=== PATIENT | male | born 1960 | race Caucasian/White ===

== ENCOUNTER 2022-05-26 07:12 | Outpatient (CLI) | payer OTHER | END 2022-05-26 10:20 | disposition home or self-care (01) | LOC: SONOGRAMA 07:12 | PROVIDERS: ATTEND Urology | DX: C61 Malignant neoplasm of prostate (principal); D29.1 Benign neoplasm of prostate; R97.20 Elevated prostate specific antigen [PSA] ==

== ENCOUNTER 2023-08-12 07:02 | Outpatient (CLI) | payer OTHER ==
[2023-08-13] MEDS ORDERED: VALSARTAN40 MG (09:11)
[2023-08-13] MEDS ORDERED: LIPITOR20 MG (09:11)
[2023-08-13] MEDS ORDERED: CARVEDILOL ER40 MG (09:12)
[2023-08-13] MEDS ORDERED: PROSCAR5 MG (09:12)
== END 2023-08-12 07:15 | disposition home or self-care (01) ==
LOC: SONOGRAMA 07:02
PROVIDERS: ATTEND Urology
DX: R97.20 Elevated prostate specific antigen [PSA] (principal)

== ENCOUNTER 2023-08-13 08:50 | Emergency (ER) | payer OTHER ==
[~2023-08-13] VITALS: Ht 172.7 cm; Wt 77.1 kg
[2023-08-13] MEDS ORDERED: LIPITOR20 MG (09:11)
[2023-08-13] MEDS ORDERED: VALSARTAN40 MG (09:11)
[2023-08-13] MEDS ORDERED: PROSCAR5 MG (09:12)
[2023-08-13] MEDS ORDERED: CARVEDILOL ER40 MG (09:12)
[2023-08-13] MEDS ORDERED: GENTAMICIN SULFATE 40 MG/ML VIAL IV STA (10:46)
[2023-08-13] MEDS ORDERED: GENTAMICIN SULFATE 40 MG/ML VIAL ONE (11:11)
== END 2023-08-13 11:21 | disposition home or self-care (01) ==
LOC: ER 08:51
DX: R53.81 Other malaise (principal); E78.00 Pure hypercholesterolemia, unspecified; I10 Essential (primary) hypertension; Z85.46 Personal history of malignant neoplasm of prostate; Z88.8 Allergy status to other drugs, medicaments and biological substances

== ENCOUNTER 2023-08-14 10:28 | Emergency (ER) | payer OTHER ==
[~2023-08-14] VITALS: Ht 172.7 cm; Wt 77.1 kg
[~2023-08-14 10:28] MED LIST: CARVEDILOL ER40 MG; LIPITOR20 MG; PROSCAR5 MG; VALSARTAN40 MG
[2023-08-14] MEDS ORDERED: GENTAMICIN SULFATE 40 MG/ML VIAL IM ONE (11:30)
== END 2023-08-14 12:00 | disposition home or self-care (01) ==
LOC: ER 10:29
DX: Z76.89 Persons encountering health services in other specified circumstances (principal); Z88.8 Allergy status to other drugs, medicaments and biological substances

== ENCOUNTER 2023-12-02 10:30 | Inpatient (IN) | payer OTHER ==
[~2023-12-02] VITALS: Ht 180.3 cm; Wt 76.7 kg
[2023-12-02 12:54] VITALS: BP 150/100; BP 178/102
[2023-12-02 13:35] LABS: HEMATOCRIT 46.5 % (39.0-48.0); HEMOGLOBIN 15.5 g/dL (13-16.00); MEAN CELL VOLUME 90.9 fL (80.0-100.00); MEAN CORPUSCULAR HEMOGLOBIN 30.3 pg (27.00-32.0); MEAN CORPUSCULAR HGB CONC 33.4 g/dl (32.0-36.0); PLATELET COUNT 229 K/uL (150-450); RED BLOOD COUNT 5.12 M/uL (4.00-6.00); RED CELL DISTRIBUTION WIDTH 13.7 % (11.5-14.5)
[2023-12-02 13:46] LABS: URINE APPEARANCE Clear; URINE BILIRRUBIN Negative (NEGATIVE); URINE BLOOD Negative; URINE COLOR Yellow; URINE KETONE Trace (NEGATIVE); URINE LEUKOCYTE Negative; URINE NITRATE Negative; URINE PROTEIN Trace (NEGATIVE); URINE UROBILINOGEN 0.2 E.U./dl
[2023-12-02 13:47] LABS: URINE BACTERIA 7.5 uL (0.0-1933); URINE EPITHELIAL CELLS 2.6 uL (0.0-38.8); URINE WBC 3.8 uL (0.0-23.2)
[2023-12-02 14:00] LABS: INR 1.09; PARTIAL THROMBOPLASTIN TIME 29.9 SECONDS (22.0-34.0); PROTHROMBIN TIME 11.8 SECONDS (9.0-11.5); URINE CAST 0.45 uL (0.0-1.40); URINE GLUCOSE >=1000 MG/DL (NEGATIVE); URINE RBC 1.8 uL (0.0-20.8)
[2023-12-02 14:12] LABS: CALCIUM 9.2 mg/dL (8.5-10.1); CREATININE SERUM 1.42 mg/dL (0.70-1.30); GFR 50.52; POTASSIUM 4.65 mEq/L (3.5-5.1)
[2023-12-02 14:32] LABS: RH POSITIVE
[2023-12-09] MEDS ORDERED: FARXIGA10 MG (09:07)
[2023-12-09] MEDS ORDERED: MONTELUKAST SOD10 MG (09:07)
[2023-12-09] MEDS ORDERED: CARVEDILOL25 M1 (09:07)
[2023-12-09] MEDS ORDERED: CEFAZOLIN SODIUM 1,000 MG in 0.9 % SODIUM CHLORIDE 50 ML IV ONE (10:00)
[2023-12-09] MEDS ORDERED: ENOXAPARIN SODIUM 40 MG/0.4 ML SYRINGE SUBCUTANEO ONE (10:00)
[2023-12-09] MEDS ORDERED: CHLORHEXIDINE GLUCONATE 120 ML BOTTLE TOP ONE (10:00)
[2023-12-09] MEDS ORDERED: ONDANSETRON HCL 2 MG/ML VIAL IV ONE (10:00)
[2023-12-09] MEDS ORDERED: DEXTROSE 5 %-0.45 % SOD CHLORD 1,000 ML IV SCH (14:07)
[2023-12-09] MEDS ORDERED: OxyCODONE HCL/APAP UD (PERCOCET) PO PRN (14:15)
[2023-12-09] MEDS ORDERED: ONDANSETRON HCL 2 MG/ML VIAL IV PRN (14:15)
[2023-12-09] MEDS ORDERED: SUGAMMADEX SODIUM 200 MG/2 ML VIAL IV ONE (15:30)
[2023-12-09] MEDS ORDERED: MORPHINE SULFATE 2 MG/ML CARTRIDGE IV ONE (15:35)
[2023-12-09] MEDS ORDERED: FAMOtidine 20 MG TABLET PO SCH (17:00)
[2023-12-09] MEDS ORDERED: SIMETHICONE 125 MG CAPSULE PO SCH (17:00)
[2023-12-09] MEDS ORDERED: DOCUSATE SODIUM 100MG CAP PO SCH (17:00)
[2023-12-09 20:16] VITALS: BP 145/77; O2SAT 99
[2023-12-09] MEDS ORDERED: CARVEDILOL 25 MG TABLET PO SCH (23:45)
[2023-12-10] VITALS: BP 167/80; O2SAT 98
[2023-12-10 08:20] VITALS: BP 149/83; O2SAT 96
[2023-12-10 08:34] LABS: HEMATOCRIT 40.9 % (39.0-48.0); HEMOGLOBIN 14.2 g/dL (13-16.00); MEAN CELL VOLUME 88.7 fL (80.0-100.00); MEAN CORPUSCULAR HEMOGLOBIN 30.9 pg (27.00-32.0); MEAN CORPUSCULAR HGB CONC 34.8 g/dl (32.0-36.0); PLATELET COUNT 183 K/uL (150-450); RED BLOOD COUNT 4.61 M/uL (4.00-6.00); RED CELL DISTRIBUTION WIDTH 13.6 % (11.5-14.5)
[2023-12-10 08:50] LABS: CREATININE SERUM 1.29 mg/dL (0.70-1.30); GFR 56.44; POTASSIUM 3.49 mEq/L (3.5-5.1)
[2023-12-10] MEDS ORDERED: ENOXAPARIN SODIUM 40 MG/0.4 ML SYRINGE SUBCUTANEO SCH (09:00)
[2023-12-10] MEDS ORDERED: PATIENTS OWN MEDICATION (MEDICAMENTO EN PISO) PO SCH ×2 (10:30)
[2023-12-10 16:00] VITALS: BP 155/85; O2SAT 97
[2023-12-11 00:46] VITALS: BP 148/75; O2SAT 96
[2023-12-11] MEDS ORDERED: CARVEDILOL 12.5 MG TABLET PO SCH (09:00)
[2023-12-11 10:35] VITALS: BP 152/95; O2SAT 98
== END 2023-12-11 15:51 | disposition home or self-care (01) | DRG 708 ==
LOC: O/R 12-09 05:30 → SURH 12-09 07:00 → SURG 12-09 13:24
PROVIDERS: ADMIT Urology; ATTEND Urology
PROC: 0VT04ZZ Resection of Prostate, Percutaneous Endoscopic Approach (ICD-10-PCS; principal; 2023-12-10)
PROC: 8E0W4CZ Robotic Assisted Procedure of Trunk Region, Percutaneous Endoscopic Approach (ICD-10-PCS; 2023-12-10)
PROC: 0TB Urinary System, Excision (ICD-10-PCS; 2023-12-10)
DX: C61 Malignant neoplasm of prostate (principal)
CPT/HCPCS: 55866; S2900